=== PATIENT | female | born 1955 | race Caucasian/White ===

== ENCOUNTER → 2019-10-02 | Day surgery (SDC) | payer BC ==
[~2019-10-02] MED LIST: ACETAMINOPHEN 325 MG TABLET PO PRN; ALBUTEROL SULFATE 2.5 MG/3 ML NEBU. NEB PRN; ATROPINE 0.5 MG/5 ML DISP.SYRIN. IV PRN; IV RINGERS SOLUTION,LACTATED 1,000 ML IV SCH; LEVO200T PO; LISD40CA3 PO; ONDANSETRON PF 4 MG/2 ML VIAL. IV PRN; PHENOL ORAL SPRAY 177ML BOTTLE. MM PRN; PROPOFOL 40 ML IV ONE; QUET100T4 PO; SERT100T PO; diphenhydrAMINE 50 MG/ML VIAL IV PRN
[2019-10-02 10:30] VITALS: BP 137/67
--- NOTE | 2019-10-03 15:07 | PATHOLOGY ---
[facility] Accession Number: [id number] . 01 Material submitted: . colon - TRANSVERSE POLYP. Modifiers: transverse . 01 Clinical history: . None provided. . 02 Diagnosis: Colon biopsies, transverse colon polyp: - Tubular adenoma. . (JPM:too; 10/03/2019) QMS 10/03/2019 0825 Local . 02 Comment: There is no high grade dysplasia or evidence of malignancy. . 02 Electronically signed: . Guido Abarca MD, Pathologist NPI- [id number] . 01 Gross description: . Received in formalin labeled "[place], [place], transverse polyp" is a 0.5 x 0.3 x 0.1 cm fragment of cooney-brown soft tissue. The specimen is submitted entirely in A1. ([facility] [place]; 10/02/2019) [facility] 10/02/2019 1925 Local . 02 Pathologist provided ICD-10: D12.3 . 02 CPT . 334799 Specimen Comment: A courtesy copy of this report has been sent to [phone] Specimen Comment: [phone] Specimen Comment: Report sent to / DR BOOKER Performed at: 01 [facility] [address], [place], [place] [id number] MD Gareth Camargo MD Phone: [phone] Performed at: 02 [facility] [address] [place], [place] [id number] MD Guido Abarca MD Phone: [phone]
== END ==
LOC: SURG 07:21
PROVIDERS: ATTEND Emergency Medicine
DX: Z12.11 Encounter for screening for malignant neoplasm of colon (principal); D12.3 Benign neoplasm of transverse colon; K64.8 Other hemorrhoids; F32.9 Major depressive disorder, single episode, unspecified; E03.9 Hypothyroidism, unspecified; Z98.84 Bariatric surgery status; Z98.890 Other specified postprocedural states; Z72.89 Other problems related to lifestyle
CPT/HCPCS: 45380; 88305; J2704; J7120

== ENCOUNTER → 2021-01-12 | Outpatient (CLI) | payer BC ==
[2019-10-02 10:30] VITALS: BP 137/67
[~2021-01-12] MED LIST changes: -ACETAMINOPHEN 325 MG TABLET PO PRN; -ALBUTEROL SULFATE 2.5 MG/3 ML NEBU. NEB PRN; -ATROPINE 0.5 MG/5 ML DISP.SYRIN. IV PRN; -IV RINGERS SOLUTION,LACTATED 1,000 ML IV SCH; -ONDANSETRON PF 4 MG/2 ML VIAL. IV PRN; -PHENOL ORAL SPRAY 177ML BOTTLE. MM PRN; -PROPOFOL 40 ML IV ONE; -diphenhydrAMINE 50 MG/ML VIAL IV PRN
--- NOTE | 2021-01-12 10:31 | RAD ---
EXAM: Head CT without contrast. HISTORY: Head injury. TECHNIQUE: Computed tomographic images of the head were obtained without contrast. *One or more of the following individualized dose reduction techniques were utilized for this examina tion: 1. Automated exposure control. 2. Adjustment of the mA and/or kV according to patient size. 3. Use of iterative reconstruction technique. COMPARISON: None. FINDINGS: There is no acute or subacute extra-axial or intraparenchymal hemorrhage. There is no mass effect or midline shift. There is no hydrocephalus. There are areas of decreased attenuation within the cerebral white matter, nonspecific and likely rel ated to chronic small vessel disease. There is frontal lobe predominant cerebral volume loss with enl argement of the frontal horns of the lateral ventricles. The visualized portions of the orbits, paranasal sinuses and mastoid air cells are unremarkable. No s uspicious calvarial lesion is seen. IMPRESSION: 1. No acute intracranial finding. 2. Bilateral cerebral white matter changes, likely due to chronic small vessel disease. 3. Cerebral volume loss. Electronically signed by: Brianna Frankel MD (01/12/2021 10:28 AM) [id number]
--- NOTE | 2021-01-23 10:32 | RAD ---
PROCEDURE: MG BILAT SCREEN+ANNE-MARIE HISTORY: The patient is 65 years old and is seen for Reason: SCREENING / Spl. Instructions: / Histor y: . COMPARISON: May 09, 2018 TECHNIQUE: CC and MLO views of both breasts were obtained. Images were processed by the [employer] computer-aided detection system. DENSITY: There are scattered fibroglandular densities. FINDINGS: No developing mass, suspicious calcifications or architectural distortion. IMPRESSION: Negative. No evidence of malignancy. Recommend annual screening mammograms per [place] [employer] guidelines. She will be due in one year. BI-RADS category 1 Negative Patient entered into a reminder system for annual screening mammogram. Electronically signed by: Lencho Montes DO (01/23/2021 10:30 AM) [id number]
== END ==
LOC: CT 10:08
PROVIDERS: ATTEND Internal Medicine
DX: Z12.31 Encounter for screening mammogram for malignant neoplasm of breast (principal); S09.90XA Unspecified injury of head, initial encounter; X58.XXXA Exposure to other specified factors, initial encounter; Y93.89 Activity, other specified; Y92.89 Other specified places as the place of occurrence of the external cause; Y99.8 Other external cause status
CPT/HCPCS: 70450; 77063; 77067